=== PATIENT | female | born 1995 | race Caucasian/White ===

== ENCOUNTER → 2020-06-09 | Outpatient (REF) | payer SELFPAY | LOC: COL.LAB 15:03 | DX: Z20.828 Contact with and (suspected) exposure to other viral communicable diseases (principal) ==

== ENCOUNTER 2020-07-18 07:17 | Emergency (ER) | payer OTHER ==
[~2020-07-18] VITALS: Ht 167.6 cm; Wt 61.4 kg
[2020-07-18 07:20] VITALS: TEMP 98.3
[2020-07-18 07:54] LABS: COLLECTION METHOD CLEAN CATCH
[2020-07-18 08:00] LABS: BASO % 0.7 % (0.0-2.0); EOS # 0.3 (0.0-0.7); EOS % 4.9 % (0-4.0); GRAN % 55.3 % (42.2-75.2); HEMATOCRIT 37.2 % (37.0-47.0); HEMOGLOBIN 12.4 g/dl (12.5-16.0); LYMPH # 1.7 (1.2-3.4); MEAN CELL VOLUME 90 fl (80.0-100.0); MEAN CORPUSCULAR HEMOGLOBIN 30 pg (27.0-31.0); MEAN CORPUSCULAR HGB CONC 33 g/dl (33.0-37.0); MEAN PLATELET VOLUME 10.3 fl (7.4-10.4); MONO # 0.4 (0.1-0.6); MONO % 7.9 % (1.7-9.3); PLATELET COUNT 253 K/mm3 (130-400); RED BLOOD COUNT 4.14 M/mm3 (4.10-5.30); REDCELL DISTRIBUTION WIDTH-CV 12.7 % (11.5-14.5)
[2020-07-18 08:04] LABS: MUCOUS Present /lpf; PH 6 (5-8); URINE APPEARANCE Clear; URINE BACTERIA None Seen /hpf; URINE BILIRUBIN Negative (NEGATIVE); URINE BLOOD Negative (NEGATIVE); URINE COLOR Yellow; URINE GLUCOSE Negative (NEGATIVE); URINE KETONE Negative (NEGATIVE); URINE LEUKOCYTE ESTERASE Negative (NEGATIVE); URINE NITRATE Negative (NEGATIVE); URINE PROTEIN(semi-quant) Negative (NEGATIVE); URINE RBC 0-2 /hpf; URINE UROBILINOGEN Negative (NEGATIVE)
[2020-07-18 08:11] LABS: ALANINE AMINOTRANSFERASE 19 U/L (4-34); ALBUMIN 4.7 gm/dL (3.5-5.0); ALKALINE PHOSPHATASE 44 U/L (50-136); ANION GAP 9 mmol/L (7-16); AST,SGOT 23 U/L (15-37); BILIRUBIN,TOTAL 0.5 mg/dL (0.0-1.0); BLOOD UREA NITROGEN 19 mg/dL (7-17); C-REACTIVE PROTEIN < 0.5 mg/dL (0.0-0.9); CARBON DIOXIDE 24 mmol/L (22-30); CHLORIDE 105 mmol/L (98-107); CREATININE, serum 0.74 (0.52-1.25); GLUCOSE 106 mg/dL (74-106); POTASSIUM 3.6 mmol/L (3.4-5.0); SODIUM 138 mmol/L (137-145); TOTAL PROTEIN 7.6 gm/dL (6.4-8.2)
[2020-07-18 11:01] VITALS: BP 127/86; PULSE 84
== END 2020-07-18 11:05 | disposition home or self-care (01) ==
LOC: COL.ER 07:17
PROVIDERS: Emergency Medicine
DX: N83.202 Unspecified ovarian cyst, left side (principal); Z32.02 Encounter for pregnancy test, result negative
CPT/HCPCS: J1885; J2270; J2405; J7030; Q9967

== ENCOUNTER → 2021-04-07 | Outpatient (REF) ==
[~2021-04-07] MED LIST: PRENATAL TABLET PO; PROAIR HFA0.09 MG/AC IH; ZYRTEC 10MG10 MG PO
== END ==
LOC: COL.LAB 07:43
DX: Z20.822 Contact with and (suspected) exposure to COVID-19 (principal)

== ENCOUNTER 2021-08-25 17:01 | Outpatient (CLI) | payer OTHER ==
[~2021-08-25] VITALS: Ht 167.6 cm; Wt 79.5 kg
--- NOTE | 2021-08-25 16:50 | NUR ---
1650-, 31.5, sent here from clinic due to high blood pressures in office. Patient ambulates to LDR2 with spouse. Oriented to room. Changed into gown. EFM/TOCO explained and applied. Assessments completed. Plan of care discussed.
[2021-08-25] MEDS ORDERED: PRENATAL TABLET PO (17:22)
[2021-08-25 17:23] VITALS: BP 145/90; PULSE 94
[2021-08-25] MEDS ORDERED: ZYRTEC 10MG10 MG PO (17:23)
[2021-08-25] MEDS ORDERED: PROAIR HFA0.09 MG/AC IH (17:23)
[2021-08-25 17:30] VITALS: BP 155/91; PULSE 85; TEMP 99
[2021-08-25 17:31] LABS: COLLECTION METHOD CLEAN CATCH
[2021-08-25 17:37] LABS: BASO % 0.3 % (0.0-2.0); EOS # 0.3 K/mm3 (0.0-0.7); EOS % 2.5 % (0-4.0); GRAN # 8.9 K/mm3 (1.4-6.5); GRAN % 72.1 % (42.2-75.2); HEMOGLOBIN 10.1 g/dl (12.5-16.0); LYMPH # 1.9 K/mm3 (1.2-3.4); LYMPH % 15.7 % (20.0-51.0); MEAN CELL VOLUME 90 fl (80.0-100.0); MEAN CORPUSCULAR HEMOGLOBIN 30 pg (27.0-31.0); MEAN CORPUSCULAR HGB CONC 34 g/dl (33.0-37.0); MEAN PLATELET VOLUME 10.7 fl (7.4-10.4); MONO # 1.1 K/mm3 (0.1-0.6); MONO % 8.8 % (1.7-9.3); PLATELET COUNT 229 K/mm3 (130-400); RED BLOOD COUNT 3.35 M/mm3 (4.10-5.30); REDCELL DISTRIBUTION WIDTH-CV 12.4 % (11.5-14.5)
[2021-08-25 17:40] VITALS: BP 144/86; PULSE 92
[2021-08-25 17:45] LABS: MUCOUS Present (NOT PRESENT); PH 6 (5-8); SQUAMOUS EPITHELIAL 0-2 /hpf (0-10); URINE APPEARANCE Cloudy (CLEAR/HAZY); URINE BACTERIA Rare (NONE SEEN); URINE BILIRUBIN Negative (NEGATIVE); URINE BLOOD Negative (NEGATIVE); URINE COLOR Yellow (YELLOW); URINE GLUCOSE Negative (NEGATIVE); URINE KETONE Trace (NEGATIVE); URINE LEUKOCYTE ESTERASE Negative (NEGATIVE); URINE NITRATE Negative (NEGATIVE); URINE PROTEIN(semi-quant) Negative (NEGATIVE); URINE RBC 0-2 /hpf (0-2); URINE UROBILINOGEN Negative (NEGATIVE)
[2021-08-25 17:59] LABS: ALBUMIN 3.3 gm/dL (3.5-5.0); BILIRUBIN,TOTAL 0.3 mg/dL (0.2-1.2); CALCIUM 9.2 mg/dL (8.4-10.2); CREATININE, serum 0.63 mg/dL (0.57-1.11); POTASSIUM 3.4 mmol/L (3.5-4.5); TOTAL PROTEIN 6.7 gm/dL (6.2-8.1)
[2021-08-25 18:00] VITALS: BP 132/73; PULSE 86
[2021-08-25 18:30] VITALS: BP 124/72; PULSE 99
--- NOTE | 2021-08-25 18:30 | NUR ---
183 DR MAYO HERE AND LAB RESULTS REVIEWED. ORDER TO SEND HOME GIVEN 1839 HOME WITH INSTRUCTIONS
== END 2021-08-25 18:40 | disposition home or self-care (01) ==
LOC: LDRO 17:01
PROVIDERS: Obstetrics & Gynecology
DX: O16.3 Unspecified maternal hypertension, third trimester (principal); Z3A.31 31 weeks gestation of pregnancy

== ENCOUNTER 2021-09-30 08:05 | Inpatient (IN) | payer OTHER ==
[~2021-09-30] VITALS: Ht 167.6 cm; Wt 82.3 kg
[2021-09-30 20:20] VITALS: BP 137/93; PULSE 91; TEMP 98
[2021-09-30 21:00] VITALS: BP 134/91; PULSE 89
[2021-09-30 21:04] LABS: BASO % 0.3 % (0.0-2.0); EOS # 0.2 K/mm3 (0.0-0.7); EOS % 1.6 % (0.0-4.0); GRAN # 7.7 K/mm3 (1.4-6.5); GRAN % 72.9 % (42.2-75.2); LYMPH # 1.9 K/mm3 (1.2-3.4); LYMPH % 17.8 % (20.0-51.0); MEAN CELL VOLUME 88 fl (80.0-100.0); MEAN CORPUSCULAR HGB CONC 34 g/dl (33.0-37.0); MEAN PLATELET VOLUME 10.8 fl (7.4-10.4); MONO # 0.7 K/mm3 (0.1-0.6); MONO % 6.8 % (1.7-9.3); PLATELET COUNT 232 K/mm3 (130-400); RED BLOOD COUNT 3.34 M/mm3 (4.10-5.30); REDCELL DISTRIBUTION WIDTH-CV 13.2 % (11.5-14.5)
[2021-09-30 21:08] LABS: HEMATOCRIT 29.5 % (37.0-47.0); HEMOGLOBIN 9.9 g/dl (12.5-16.0); MEAN CORPUSCULAR HEMOGLOBIN 30 pg (27-31)
[2021-09-30 21:15] LABS: BILIRUBIN,TOTAL 0.3 mg/dL (0.2-1.2); CALCIUM 8.5 mg/dL (8.4-10.2); CREATININE, serum 0.71 mg/dL (0.57-1.11); POTASSIUM 3.7 mmol/L (3.5-4.5); TOTAL PROTEIN 6.2 gm/dL (6.2-8.1)
[2021-09-30 21:45] VITALS: BP 133/87; PULSE 87
[2021-09-30 22:15] VITALS: BP 126/79; PULSE 88
[2021-09-30 22:45] VITALS: BP 122/83; PULSE 91
--- NOTE | 2021-09-30 23:00 | NUR ---
Off monitor, up to bathroom and move around the room.
[2021-10-01] VITALS (75 sets, daily range): BP systolic 112–167; BP diastolic 63–97; PULSE 66–130; TEMP 97.6–98.9
--- NOTE | 2021-10-01 00:55 | NUR ---
SVE with slight changes noted. Pt states "I really don't feel any cramps" 2nd cytotech placed. Vistaril 50mg po given, lights dimmed encouraged to rest.
--- NOTE | 2021-10-01 03:12 | NUR ---
Off monitor, up to bathroom. PT reports "starting to feel these"
--- NOTE | 2021-10-01 06:30 | NUR ---
0630- TOCO not tracing well due to maternal position while sleeping. Adjusted by the RN will continue to monitor.
--- NOTE | 2021-10-01 09:15 | NUR ---
0904- Dr Love at bedside, discusses POC with Pt, Pt denies questions. Bedside US performed by for position, vertex. 0907- SVE /-3, AROM without difficulty noted, clear, odorless fluid noted. Chux and towel changed. Pt tolerated well.
--- NOTE | 2021-10-01 11:00 | NUR ---
1046- Pt assisted to sitting on side of bed for epidural placement. José Miguel Ledesma CRNA at bedside. Pt's IV positional and requiring traction to flow. Pt denies pain but area just above insertion site is slightly swollen. Flushes well. 1053- Single shot by [employer], see anesthesia record. 1057- Pt assited to semi-fowlers with WL. EFM and TOCO adjuted. 1105- IV start in right upper forearm per Pt request.
--- NOTE | 2021-10-01 15:45 | NUR ---
1535- Pt complete/+2 station. Pt and room prepped for pushing. Oro removed without difficulty. Pericare completed. 1547- Pt begins pushing with UCs, this RN remain at bedside.
--- NOTE | 2021-10-01 16:15 | NUR ---
1607- Pt updated on plan to stop pushing and wait for Dr Love to evaluate FHR tracing. Questions encourged. Pt assisted to LL, TOCO adjusted.
--- NOTE | 2021-10-01 16:30 | NUR ---
1628- Dr Love at bedside after reviewing strip from nurses station. Evaluates pushing. Pt and room prepped for delivery, remains at bedside. 2765- Nancy Nurseyony RN at bedside.
--- NOTE | 2021-10-01 17:19 | NUR ---
171- of viable male . To mother's abd, tended to by nursery. Pitocin off. 172- Spontaneous delivery of placenta, Pitocin restarted at 333ml/hr. Fundus massaged to firm by . 2nd degree laceration repaired. Straight cath by . Moderate amount of free-flow with 2 large clots, fundus firm. Pericare completed. Pt doing well at this time.
[2021-10-02 04:00] VITALS: BP 134/80; PULSE 78; TEMP 98.9
[2021-10-02] MEDS ORDERED: IBU600 MG PO (06:26)
[2021-10-02 07:35] LABS: HEMOGLOBIN 9.8 g/dl (12.5-16.0)
[2021-10-02 07:45] VITALS: BP 125/83; PULSE 71; TEMP 97.7
--- NOTE | 2021-10-02 10:11 | NUR ---
Initial visit; Parents thanked Elevator Mechanic for offering congratulations and God's blessings for the of their son. Elevator Mechanic thanked family for choosing [facility].
[2021-10-02 11:00] VITALS: BP 132/84; PULSE 79
[2021-10-02 16:00] VITALS: BP 119/75; PULSE 86; TEMP 97.4
[2021-10-02 20:16] VITALS: BP 125/82; PULSE 72
[2021-10-03 05:07] VITALS: BP 137/95; PULSE 67; TEMP 97.8
[2021-10-03 08:30] VITALS: BP 114/69; PULSE 76; TEMP 97.8
--- NOTE | 2021-10-03 11:30 | NUR ---
Discharge instructions and follow up care reviewed with pt and at the bedside. Both verbalized an understanding, agreed with the plan and states no questions or concerns at this time.
== END 2021-10-03 12:00 | disposition home or self-care (01) | DRG 807 ==
LOC: LDR 08:05 → OB 10-01 21:00
PROVIDERS: ADMIT Obstetrics & Gynecology
PROC: 10E0XZZ Delivery of Products of Conception, External Approach (ICD-10-PCS; principal; 2021-10-01)
PROC: 0KQM0ZZ Repair Perineum Muscle, Open Approach (ICD-10-PCS; 2021-10-01)
PROC: 10907ZC Drainage of Amniotic Fluid, Therapeutic from Products of Conception, Via Natural or Artificial Opening (ICD-10-PCS; 2021-10-01)
PROC: 3E0P7VZ Introduction of Hormone into Female Reproductive, Via Natural or Artificial Opening (ICD-10-PCS; 2021-10-01)
DX: O14.94 Unspecified pre-eclampsia, complicating childbirth (principal); Z37.0 Single live birth; O34.40 Maternal care for other abnormalities of cervix, unspecified trimester; O70.1 Second degree perineal laceration during delivery; O99.02 Anemia complicating childbirth; D64.9 Anemia, unspecified; Z3A.37 37 weeks gestation of pregnancy; Z87.59 Personal history of other complications of pregnancy, childbirth and the puerperium
CPT/HCPCS: J2590; J2795; J7120